=== PATIENT | female | born 1995 | race African-American/Black ===

== ENCOUNTER 2020-08-25 19:29 | Inpatient (IN) ==
[2020-08-25 19:55] LABS: Basophils # 0.1 10*3/uL (0.0-0.2); Basophils % 0.9 % (0.0-0.8); Eosinophils # 0.1 10*3/uL (0.0-0.87); Hematocrit 40.4 VOL% (35.7-47.0); Hemoglobin 13.3 GM/DL (12.0-16.0); Lymphocytes # 3.3 10*3/uL (1.4-4.0); Lymphocytes % 57.1 % (21.3-54.2); Mean Corpuscular HGB Conc 32.9 GM/DL (32-36); Mean Platelet Volume 9.9 FL (9.6-12.0); Monocytes % 5.5 % (1.7-12.7); Neutrophils % 35.5 % (38.7-73.9); Platelet Count 282 T/CUMM (130-400); Red Blood Count 4.99 MC/CUMM (3.8-5.5); Red Cell Distribution Width 15.3 % (9.3-17.3); White Blood Count 5.8 T/CUMM (4-12)
[2020-08-25 20:12] LABS: Alanine Aminotransferase 23 U/L (13-56); Albumin 3.9 G/DL (3.4-5.0); Alkaline Phosphatase 64 U/L (45-117); Aspartate Amino Transferase 15 U/L (0-37); Bilirubin,Total < 0.39 MG/DL (0.2-1.0); Blood Urea Nitrogen 9 MG/DL (7-18); Calcium 8.9 MG/DL (8.5-10.1); Estimated Glom Filtration Rate 109 ML/MIN; Glucose 96 MG/DL (74-106); Osmolality,Calculated 279.3 MOS/KG (273-304)
[2020-08-25 20:17] LABS: Anisocytosis Slight; Eosinophils 1 % (0-10); Lymphocytes 52 % (20-55); Microcytosis Slight; Platelet Estimate Normal; Segmented Neutrophils 40 % (50-85); Total Cells Counted 100
[2020-08-25] MEDS ORDERED: POTASSIUM CHLORIDE 20 MEQ TABLET PO STA (21:24)
[2020-08-25] MEDS ORDERED: DEXTROSE 5% IV ONE ×2 (21:25→23:00)
[2020-08-25] MEDS ORDERED: ACETYLCYSTEINE IV ONE ×2 (21:25→23:00)
[2020-08-25] MEDS ORDERED: ONDANSETRON 4 MG/2 ML VIAL IV STA (21:30)
[2020-08-25] MEDS ORDERED: PANTOPRAZOLE 40 MG VIAL IV STA (21:31)
[2020-08-25 21:48] LABS: Troponin I < 0.015 NG/ML (0.00-0.045)
[2020-08-25 22:03] LABS: INR 1.1; PT Patient Result 11.4 SECS (9.8-11.9)
[2020-08-25] MEDS ORDERED: ALBUTEROL 2.5 MG/3 ML NEB RESP TX PRN (22:03)
[2020-08-25] MEDS ORDERED: ENOXAPARIN 40 MG/0.4 ML SYRINGE SUBCUT SCH (22:15)
[2020-08-26] MEDS ORDERED: DEXTROSE 5% IV ONE (03:30)
[2020-08-26] MEDS ORDERED: ACETYLCYSTEINE IV ONE (03:30)
[2020-08-26 04:14] LABS: Basophils % 0.5 % (0.0-0.8); Eosinophils % 0.1 % (0.00-10.9); Hematocrit 41.2 VOL% (35.7-47.0); Hemoglobin 13.7 GM/DL (12.0-16.0); Immature Granulocytes % 0.3 %; Immature Granulocytes Absolute 0.02 #; Lymphocytes # 1.2 10*3/uL (1.4-4.0); Mean Corpuscular HGB Conc 33.3 GM/DL (32-36); Mean Corpuscular Volume 80.8 FL (87-102); Mean Platelet Volume 10.4 FL (9.6-12.0); Monocytes % 5.6 % (1.7-12.7); Neutrophils % 77.5 % (38.7-73.9); Platelet Count 283 T/CUMM (130-400); Red Cell Distribution Width 15.1 % (9.3-17.3); White Blood Count 7.7 T/CUMM (4-12)
[2020-08-26 04:24] LABS: INR 1.3; PT Patient Result 13.7 SECS (9.8-11.9)
[2020-08-26 04:33] LABS: Albumin 3.6 G/DL (3.4-5.0); Osmolality,Calculated 280.3 MOS/KG (273-304); Total Protein 8.3 G/DL (6.4-8.3)
[2020-08-26 07:18] LABS: Bilirubin,Urine Negative (Negative); Blood, Urine Moderate mg/dL (Negative); Glucose,Urine (UA) Negative (Negative); Ketones,Urine 80 mg/dL (Negative); Mucus,Urine Occasional /LPF (Occasional); Nitrite,Urine Negative (Negative); Protein,Urine 30 MG/DL; RBC,Urine 9 /HPF (0-4); Squamous Epithelial Cell,Urine Moderate /HPF (0-10); Urine Appearance Slightly Hazy (Clear); Urine Color Yellow (Yellow); Urine Specific Gravity 1.039 (1.001-1.035); Urine Urobilinogen < 2.0 EU/DL (0.2-1.0); WBC,Urine 1 /HPF (0-6)
[2020-08-26 07:23] LABS: Barbiturates Screen,Urine Negative (Negative); Benzodiazepines Screen,Urine Negative (Negative); Cannabinoid Screen,Urine Positive (Negative); Opiate Screen,Urine Negative (Negative); Phencyclidine Screen,Urine Negative (Negative)
[2020-08-26] MEDS ORDERED: MAGNESIUM SULF RIDER 2 GM in PREMIX 1 EACH IV ONE (09:00)
[2020-08-26] MEDS ORDERED: PANTOPRAZOLE 40 MG TABLET PO SCH (09:00)
[2020-08-26 19:22] LABS: Alanine Aminotransferase 36 U/L (13-56); Albumin 3.2 G/DL (3.4-5.0); Alkaline Phosphatase 55 U/L (45-117); Aspartate Amino Transferase 22 U/L (0-37); Bilirubin,Total < 0.39 MG/DL (0.2-1.0); Blood Urea Nitrogen 12 MG/DL (7-18); Calcium 8.6 MG/DL (8.5-10.1); Estimated Glom Filtration Rate 109 ML/MIN; Glucose 94 MG/DL (74-106); Osmolality,Calculated 282.1 MOS/KG (273-304); Total Protein 7.3 G/DL (6.4-8.3)
[2020-08-27 04:26] VITALS: BP 124/72
== END 2020-08-26 21:41 | DRG 918 ==
LOC: N.ED 19:29 → N.EDINP 22:03 → SUATTDRO 22:03 → N.EDINP 08-26 21:40
PROVIDERS: ADMIT Family Medicine; ATTEND Internal Medicine